=== PATIENT | female | born 1995 | race American Indian/Alaskan Native ===

== ENCOUNTER 2017-12-28 13:04 | Emergency (ER) | payer OTHER ==
[2017-12-28 13:16] VITALS: BP 132/73
[2017-12-28] MEDS ORDERED: TORADOL IM ONE (14:52)
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
[2018-01-01] MEDS ORDERED: GLUCAGEN ONE (02:36)
[2018-01-01] MEDS ORDERED: D50W (25GM) Syringe IV ONE (02:38)
[2018-01-03] MEDS ORDERED: NACL 0.9% 1000 ML 1,000 ML ONE (20:23)
== END 2017-12-28 15:36 | disposition left against medical advice (07) ==
LOC: ED 13:04
DX: R51 Headache (principal); F17.200 Nicotine dependence, unspecified, uncomplicated
CPT/HCPCS: 99281; J1885